=== PATIENT | male | born 1960 | race Caucasian/White ===

== ENCOUNTER 2021-12-08 14:52 | Inpatient (IN) | payer OTHER ==
[~2021-12-08] VITALS: Ht 177.8 cm; Wt 77.0 kg
[2021-12-08 15:39] LABS: BASO % 0.2 % (0.0-2.0); EOS # 0.2 K/mm3 (0.0-0.7); EOS % 0.8 % (0.0-4.0); GRAN # 16.3 K/mm3 (1.4-6.5); GRAN % 85.8 % (42.2-75.2); HEMATOCRIT 40.7 % (42.0-52.0); HEMOGLOBIN 13.8 g/dl (13.5-18.0); MEAN CELL VOLUME 86 fl (80.0-100.0); MEAN CORPUSCULAR HEMOGLOBIN 29 pg (27-31); MEAN CORPUSCULAR HGB CONC 34 g/dl (33.0-37.0); MONO # 1.5 K/mm3 (0.1-0.6); MONO % 7.8 % (1.7-9.3); PLATELET COUNT 233 K/mm3 (130-400); RED BLOOD COUNT 4.72 M/mm3 (4.20-5.60); REDCELL DISTRIBUTION WIDTH-CV 14.1 % (11.5-14.5)
[2021-12-08 16:00] LABS: ALBUMIN 3.2 gm/dL (3.4-4.8); BILIRUBIN,TOTAL 1.3 mg/dL (0.2-1.2); CREATININE, serum 0.85 mg/dL (0.72-1.25); POTASSIUM 3.8 mmol/L (3.5-4.5); TOTAL PROTEIN 7.8 gm/dL (6.2-8.1)
[2021-12-08] MEDS ORDERED: ZOCOR 80MG80 MG PO (17:00)
[2021-12-08] MEDS ORDERED: FOLIC ACID 11 MG/TA1 PO (17:11)
--- NOTE | 2021-12-08 18:30 | NUR ---
PT TO ROOM 347 FROM ED. PT IS A/O X3. WILL REPORT TO FAMILY PRACTITIONER.
[2021-12-08 20:17] VITALS: BP 129/67; PULSE 78; TEMP 97.7
[2021-12-08 23:50] VITALS: BP 145/83; PULSE 67; TEMP 97.5
--- NOTE | 2021-12-09 00:03 | NUR ---
PATIENT IN BED ON ROOM ENTRY. ALERT AND ORIENTED. MED RX AND ADMISSION ASSESSMENTS COMPLETED. PATIENT C/O MODERATE PAIN TO LOW ABD AROUND 0000 AND CALL PLACED TO FREDERICK MALDONADO FOR PAIN CONTROL MEDICATION. PRN STANLEY GIVEN. PATIENT DENIES ADDITIONAL NEEDS. CALL LIGHT IN REACH.
[2021-12-09] MEDS ORDERED: METHOTREXA2.5 MG/TAB PO (00:23)
[2021-12-09] MEDS ORDERED: HUMIRA(CF)40 MG/0.4 SQ (00:24)
[2021-12-09 04:27] VITALS: BP 139/85; PULSE 69; TEMP 97.3
[2021-12-09 06:46] LABS: MEAN CELL VOLUME 87 fl (80.0-100.0); MEAN CORPUSCULAR HEMOGLOBIN 30 pg (27-31); MEAN CORPUSCULAR HGB CONC 34 g/dl (33.0-37.0); MEAN PLATELET VOLUME 11.8 fl (7.4-10.4); PLATELET COUNT 257 K/mm3 (130-400); RED BLOOD COUNT 4.03 M/mm3 (4.20-5.60); REDCELL DISTRIBUTION WIDTH-CV 14.4 % (11.5-14.5)
[2021-12-09 07:02] LABS: ALBUMIN 2.7 gm/dL (3.4-4.8); C-REACTIVE PROTEIN 20.2 mg/dL (0.00-0.50); CALCIUM 9.1 mg/dL (8.4-10.2); CREATININE, serum 0.8 mg/dL (0.72-1.25); MAGNESIUM 1.8 mg/dL (1.6-2.6); PHOSPHOROUS 3.1 mg/dL (2.3-4.7); POTASSIUM 3.8 mmol/L (3.5-4.5)
[2021-12-09 07:11] VITALS: BP 140/81; PULSE 74; TEMP 99.1
[2021-12-09 07:39] LABS: HEMATOCRIT 35.1 % (42.0-52.0)
[2021-12-09 07:43] LABS: BAND 5 % (0-10); EOSINOPHIL 4 % (0-4); LYMPHOCYTE 9 % (20.0-51.0); NEUTROPHILS 74 % (42.0-75.2); PLATELET ESTIMATE NORMAL (NORMAL)
--- NOTE | 2021-12-09 08:19 | NUR ---
Patient prescribed hazardous medication: methotrexate. Last dose per med rec; 12/05. PPE required for 3 days after last administration so staff no longer need to follow precautions unless medication activated.
--- NOTE | 2021-12-09 09:03 | NUR ---
Initial visit; Patient appears to like company and is receptive to Construction Worker inquiring as to why he is hospitalized. Patient experiencing some pain and dependant on medication at this time. He says he appreciates being kept in Construction Worker's prayers. Oleg hopes that medication will help him heal aleviating the need for surgery. Construction Worker will follow up while patient is here.
--- NOTE | 2021-12-09 10:06 | NUR ---
PATIENT ALERT AND ORIENTED X4. VSS. PATIENT C/O PAIN 5/10, REQUESTS PAIN MEDICATION. ACTIVE BOWEL SOUNDS, NO GAS. PATIENT REPORTS NO INCREASE IN ABDOMINAL DISTENTION. SLOW ZOSYN AND NS RUNNING IN RIGHT AC. PATIENT TOLERATED BREAKFAST WITH NO N/V. PATIENT RESTING IN BED WITH CALL LIGHT NEAR.
[2021-12-09 11:32] VITALS: BP 141/72; PULSE 79; TEMP 99
--- NOTE | 2021-12-09 16:16 | NUR ---
cinder worker met with patient to complete intake and discuss discharge plan. Patient reports that he lives at home with his long time partner, Isabel ([phone]). Patient is independent with his ADL's and does not utilize any DME to assist with mobility. Patient has no home oxygen needs. [facility] and gets his medications mailed to this through the [facility]. Patient does not have a DPOA-HC established. Education provided. The patient is not legally and has no biological children. Informed him that if he would like to create a DPOA-HC listing Isabel or anyone else we can help him establish one before discharge. Patient is agreeable to this but would like to think about it. He is planning on returning home once medically ready. Discharge plan:Home
--- NOTE | 2021-12-09 19:49 | NUR ---
PT MEDICATED WITH OXYCODONE 5MG PO FOR ABD PAIN. ABD DISTENDED, HYPOACTIVE BS NOTED. HAS IVF TO RAC INFUSING WITHOUT REDNESS OR SWELLING. IS ALERT AND ORIENTED X4. INDEPENDENT IN ROOM.
[2021-12-09 20:07] VITALS: BP 149/82; PULSE 84; TEMP 99.6
[2021-12-10 00:57] VITALS: BP 144/66; BP 148/87; PULSE 56; PULSE 77; TEMP 98.2; TEMP 99.4
--- NOTE | 2021-12-10 02:51 | NUR ---
REPORTED NEW RHYTHM AFIB TO DR TINAJERO. ORDER FOR EKG.
--- NOTE | 2021-12-10 03:15 | NUR ---
PT ASKING FOR PAIN MEDS, OXYCODONE 5MG PO GIVEN.
--- NOTE | 2021-12-10 03:27 | NUR ---
REPORTED EKG RESULTS TO DR TINAJERO.
--- NOTE | 2021-12-10 04:04 | NUR ---
CARDIZEM GTT STARTED.
[2021-12-10 05:03] VITALS: BP 152/76; PULSE 63; TEMP 99.2
[2021-12-10 06:26] LABS: BASO # 0.1 K/mm3 (0.0-0.2); BASO % 0.4 % (0.0-2.0); EOS # 0.4 K/mm3 (0.0-0.7); EOS % 2.9 % (0.0-4.0); GRAN # 11.3 K/mm3 (1.4-6.5); GRAN % 76.7 % (42.2-75.2); HEMATOCRIT 39.6 % (42.0-52.0); HEMOGLOBIN 12.9 g/dl (13.5-18.0); LYMPH # 1.4 K/mm3 (1.2-3.4); LYMPH % 9.5 % (20.0-51.0); MEAN CELL VOLUME 90 fl (80.0-100.0); MEAN CORPUSCULAR HEMOGLOBIN 29 pg (27-31); MEAN CORPUSCULAR HGB CONC 33 g/dl (33.0-37.0); MEAN PLATELET VOLUME 12.1 fl (7.4-10.4); MONO # 1.5 K/mm3 (0.1-0.6); MONO % 10.2 % (1.7-9.3); PLATELET COUNT 167 K/mm3 (130-400); RED BLOOD COUNT 4.41 M/mm3 (4.20-5.60); REDCELL DISTRIBUTION WIDTH-CV 14.3 % (11.5-14.5)
[2021-12-10 06:49] LABS: ALBUMIN 2.6 gm/dL (3.4-4.8); C-REACTIVE PROTEIN 16.72 mg/dL (0.00-0.50); CALCIUM 9.1 mg/dL (8.4-10.2); CREATININE, serum 0.78 mg/dL (0.72-1.25); MAGNESIUM 1.9 mg/dL (1.6-2.6); PHOSPHOROUS 3.1 mg/dL (2.3-4.7); POTASSIUM 3.4 mmol/L (3.5-4.5)
--- NOTE | 2021-12-10 07:14 | NUR ---
PLACED PAGE TO DR GARCIA FOR NEW CONSULT.
[2021-12-10 08:00] VITALS: BP 151/87; PULSE 82; TEMP 98.2
--- NOTE | 2021-12-10 08:50 | NUR ---
PATIENT SLEEPING IN BED. ASSEMENTS COMPLETE. PRN PAIN MEDS GIVEN PER ORDERS. PT DENIES NEEDS AT THIS TIME.
--- NOTE | 2021-12-10 09:32 | NUR ---
pt resting in bed ate 100% of breakfast. pt rosales
--- NOTE | 2021-12-10 10:25 | NUR ---
Follow-up visit; Patient thanked Security Architect for looking in on him and states he is "still here," and says that is a good thing. Security Architect wished Oleg well and offered God's blessings.
[2021-12-10 11:39] VITALS: BP 143/87; PULSE 70; TEMP 97.9
[2021-12-10 16:00] VITALS: BP 151/85; PULSE 64; TEMP 98.2
[2021-12-10 19:49] VITALS: BP 174/84; PULSE 72; TEMP 98.1
--- NOTE | 2021-12-10 22:09 | NUR ---
PATIENT COMPLAINED OF ABDOMINAL PAIN, 9/10 PAIN SCORE, MORPHINE GIVEN AT THIS TIME, WILL CONTINUE TO MONITOR.
[2021-12-11] VITALS (8 sets, daily range): BP systolic 129–176; BP diastolic 70–97; PULSE 64–69; TEMP 97.6–98.4
--- NOTE | 2021-12-11 02:28 | NUR ---
ANTIBIOTICS GIVEN AT THIS TIME, PT REPORTED THAT HE PUKE A LITTLE AMOUNT OF CLEAR EMESIS AND HE'S DRY HEAVING, OFFERED ZOFRAN AND WAS GIVEN AT 0223.
[2021-12-11 07:05] LABS: ALBUMIN 2.7 gm/dL (3.4-4.8); CALCIUM 9.3 mg/dL (8.4-10.2); CREATININE, serum 0.75 mg/dL (0.72-1.25); MAGNESIUM 1.9 mg/dL (1.6-2.6); PHOSPHOROUS 3.3 mg/dL (2.3-4.7); POTASSIUM 3.7 mmol/L (3.5-4.5)
[2021-12-11 07:34] LABS: BASO # 0.1 K/mm3 (0.0-0.2); BASO % 0.4 % (0.0-2.0); EOS # 0.2 K/mm3 (0.0-0.7); EOS % 1.1 % (0.0-4.0); GRAN # 13.6 K/mm3 (1.4-6.5); GRAN % 80.9 % (42.2-75.2); HEMATOCRIT 37.4 % (42.0-52.0); HEMOGLOBIN 12.6 g/dl (13.5-18.0); LYMPH # 1.4 K/mm3 (1.2-3.4); LYMPH % 8.3 % (20.0-51.0); MEAN CELL VOLUME 88 fl (80.0-100.0); MEAN CORPUSCULAR HEMOGLOBIN 30 pg (27-31); MEAN CORPUSCULAR HGB CONC 34 g/dl (33.0-37.0); MEAN PLATELET VOLUME 11.9 fl (7.4-10.4); MONO # 1.5 K/mm3 (0.1-0.6); MONO % 8.8 % (1.7-9.3); RED BLOOD COUNT 4.26 M/mm3 (4.20-5.60); REDCELL DISTRIBUTION WIDTH-CV 14.3 % (11.5-14.5)
[2021-12-11 08:08] LABS: PLATELET COUNT 268 K/mm3 (130-400)
--- NOTE | 2021-12-11 11:36 | NUR ---
PATIENT ALERT AND ORIENTED X4. VSS. PATIENT C/O PAIN 09/03, REQUESTS PAIN MEDICATION. PATIENT ON POTASSIUM PROTOCOL. REPLACED X2. BOWEL SOUNDS ACTIVE, PATIENT REPORTS PASSING GAS. HYDRALAZINE ADMINISTERED FOR ELEVATED BLOOD PRESSURE. PATIENT COMPLAINS OF NAUSEA. ASSESSMENT PERFORMED. AM MEDS ADMINISTERED. PATIENT RESTING IN BED WITH CALL LIGHT NEAR.
--- NOTE | 2021-12-11 14:24 | NUR ---
Engineering Faculty rounds: Engineering Faculty visit attempted. Patient's guest told dormitory supervisor that Patient was in the shower.
--- NOTE | 2021-12-11 20:00 | NUR ---
Patient c/o abdominal pain, pain score of 7/10, IV morphine was given at 1954, no furhter needs for the patient at this time, call light and personal items within reach.
[2021-12-12] VITALS (7 sets, daily range): BP systolic 115–170; BP diastolic 64–89; PULSE 59–67; TEMP 97.7–98.8
--- NOTE | 2021-12-12 01:08 | NUR ---
Patient up to the bathroom by himself, oxycodone given at this time, will continue to monitor.
[2021-12-12 06:46] LABS: ALBUMIN 2.7 gm/dL (3.4-4.8); CALCIUM 9.3 mg/dL (8.4-10.2); CREATININE, serum 0.82 mg/dL (0.72-1.25); PHOSPHOROUS 3.2 mg/dL (2.3-4.7); POTASSIUM 3.8 mmol/L (3.5-4.5)
[2021-12-12 07:48] LABS: BASO # 0.1 K/mm3 (0.0-0.2); BASO % 0.4 % (0.0-2.0); EOS # 0.3 K/mm3 (0.0-0.7); EOS % 1.8 % (0.0-4.0); GRAN # 12.4 K/mm3 (1.4-6.5); GRAN % 79.1 % (42.2-75.2); HEMOGLOBIN 12.2 g/dl (13.5-18.0); LYMPH # 1.4 K/mm3 (1.2-3.4); LYMPH % 8.9 % (20.0-51.0); MEAN CELL VOLUME 88 fl (80.0-100.0); MEAN CORPUSCULAR HEMOGLOBIN 29 pg (27-31); MEAN CORPUSCULAR HGB CONC 33 g/dl (33.0-37.0); MONO # 1.4 K/mm3 (0.1-0.6); MONO % 9.2 % (1.7-9.3); RED BLOOD COUNT 4.16 M/mm3 (4.20-5.60); REDCELL DISTRIBUTION WIDTH-CV 14.4 % (11.5-14.5)
--- NOTE | 2021-12-12 08:00 | NUR ---
PATIENT IS A&O. VSS ON TELE. NOTED REGULAR RATE BUT EXTRA HEART SOUND. PATIENT IS DAY 3 OF SOTOLOL FOR A-FIB. NOTED ELEVATED WBC OF 15.7, GETTING IV ABX OF FLAGYL & ZOSYN. ABD IS ROUND, SOFT AND WITH POSITIVE BOWL SOUNDS. PATIENT IS PASSING GAS AND MICROELECTRONICS ENGINEER REPORTS LIQUID BM IN THE EARLY HOURS OF THE MORNING. NO C/O N/V AT THIS TIME. BREAKFAST TRAY AT BEDSIDE. IV FLUIDS INFUSING INTO RIGHT AC IV. HEAD TO TOE ASSESSMENT COMPLETE. AM MEDS GIVEN. PATIENT C/O PAIN RATED AT 8/10, GAVE PRN ROXICODONE, ONE TAB. PT/OT CONSULTED. SCD'S CURRENTLY OFF. NO OTHER NEEDS AT THIS TIME. CALL LIGHT IN REACH.
[2021-12-12 08:01] LABS: HEMATOCRIT 36.6 % (42.0-52.0); PLATELET COUNT 294 K/mm3 (130-400)
--- NOTE | 2021-12-12 09:45 | NUR ---
PATIENT REPORTS HE IS FEELING GOOD AND WANTS TO GO FOR A WALK IN THE HALLS WITH HIS .
--- NOTE | 2021-12-12 10:45 | NUR ---
AT BEDSIDE MAKING ROUNDS, SEE NOTES.
--- NOTE | 2021-12-13 01:27 | NUR ---
Patient alert and oriented x 4, c/o of intermittent abdominal pain, at 2131 oxycodone was given with a pain score of 8/10, offered warm blanket but refused. At 2338, he rated his pain at 10/10 and another 5mg of oxycodone was given. Hydralazine IV was given as well at this time due to elevated BP, will continue to monitor, call light and personal items within reach.
[2021-12-13 04:07] VITALS: BP 140/69; PULSE 64; TEMP 98.2
[2021-12-13 06:56] LABS: ALBUMIN 2.5 gm/dL (3.4-4.8); CALCIUM 8.8 mg/dL (8.4-10.2); CREATININE, serum 0.78 mg/dL (0.72-1.25); MAGNESIUM 1.8 mg/dL (1.6-2.6); PHOSPHOROUS 2.7 mg/dL (2.3-4.7); POTASSIUM 3.7 mmol/L (3.5-4.5)
[2021-12-13 07:55] VITALS: BP 128/68; BP 159/98; PULSE 68; PULSE 77; TEMP 98.3; TEMP 99.4
[2021-12-13 08:43] LABS: BASO # 0.1 K/mm3 (0.0-0.2); BASO % 0.4 % (0.0-2.0); EOS # 0.2 K/mm3 (0.0-0.7); GRAN # 13.4 K/mm3 (1.4-6.5); GRAN % 81.1 % (42.2-75.2); HEMATOCRIT 37.7 % (42.0-52.0); HEMOGLOBIN 12.8 g/dl (13.5-18.0); LYMPH # 1.4 K/mm3 (1.2-3.4); LYMPH % 8.2 % (20.0-51.0); MEAN CELL VOLUME 88 fl (80.0-100.0); MEAN CORPUSCULAR HEMOGLOBIN 30 pg (27-31); MEAN CORPUSCULAR HGB CONC 34 g/dl (33.0-37.0); MONO # 1.4 K/mm3 (0.1-0.6); MONO % 8.3 % (1.7-9.3); RED BLOOD COUNT 4.31 M/mm3 (4.20-5.60); REDCELL DISTRIBUTION WIDTH-CV 14.2 % (11.5-14.5)
[2021-12-13 10:41] LABS: MEAN PLATELET VOLUME 10.2 fl (7.4-10.4); PLATELET COUNT 318 K/mm3 (130-400)
[2021-12-13 12:37] VITALS: BP 166/78; PULSE 67; TEMP 98.7
[2021-12-13 16:45] VITALS: BP 160/76; PULSE 63; TEMP 98.9
[2021-12-13 19:38] VITALS: BP 140/70; PULSE 63; TEMP 98.2
[2021-12-14] VITALS (16 sets, daily range): BP systolic 104–196; BP diastolic 60–110; PULSE 59–68; TEMP 98.1–98.7
--- NOTE | 2021-12-14 09:41 | NUR ---
PATIENT OFF OF FLOOR FOR PROCEDURE
[2021-12-14 15:23] LABS: ALBUMIN 2.5 gm/dL (3.4-4.8); BILIRUBIN,TOTAL 0.4 mg/dL (0.2-1.2); CALCIUM 8.5 mg/dL (8.4-10.2); CREATININE, serum 0.72 mg/dL (0.72-1.25); MAGNESIUM 1.9 mg/dL (1.6-2.6); PHOSPHOROUS 3.1 mg/dL (2.3-4.7); POTASSIUM 3.8 mmol/L (3.5-4.5); TOTAL PROTEIN 5.9 gm/dL (6.2-8.1)
--- NOTE | 2021-12-14 21:30 | NUR ---
PATIENT IS RESTING IN BED.PATIENT IS ON IVF AND TPN DRIPPING WELL.PATIENT IS TOLERATING ORAL FLUIDS WELL.PATIENT REPORTS PAIN.MEDICATION GIVEN PER MAR.PATIENT IS INDEPENDENT IN THE ROOM.PATIENT HAS A DRIN ON THE RT SIDE OF THE ABDOMEN ITS DRAINING MIMIMAL PURULENT DRAINAGE.NO OTHER NEEDS AT THIS TIME.
[2021-12-15 04:18] VITALS: BP 131/74; PULSE 67; TEMP 97.5
--- NOTE | 2021-12-15 06:07 | NUR ---
PATIENT REPORTS MILD PAIN.MEDICATIONS ADMINISTERED PER MAR.THE DRAIN ON THE LT ABD HAS MINIMAL DRAINAGE.PATIIENT IS ON TPN AND IVF.PATIENT IS INDEPENDENT INTHE ROOM.NO OTHER NEEDS AT THIS TIME.
[2021-12-15 06:48] LABS: C-REACTIVE PROTEIN 6.86 mg/dL (0.00-0.50); CALCIUM 8.3 mg/dL (8.4-10.2); CREATININE, serum 0.79 mg/dL (0.72-1.25); MAGNESIUM 1.9 mg/dL (1.6-2.6); PHOSPHOROUS 3.2 mg/dL (2.3-4.7); POTASSIUM 4.1 mmol/L (3.5-4.5)
[2021-12-15 06:51] LABS: BASO # 0.1 K/mm3 (0.0-0.2); BASO % 0.5 % (0.0-2.0); EOS # 0.2 K/mm3 (0.0-0.7); EOS % 1.4 % (0.0-4.0); GRAN # 10.4 K/mm3 (1.4-6.5); GRAN % 72.9 % (42.2-75.2); HEMOGLOBIN 12.1 g/dl (13.5-18.0); LYMPH % 13.7 % (20.0-51.0); MEAN CELL VOLUME 90 fl (80.0-100.0); MEAN CORPUSCULAR HEMOGLOBIN 29 pg (27-31); MEAN CORPUSCULAR HGB CONC 33 g/dl (33.0-37.0); MONO # 1.5 K/mm3 (0.1-0.6); MONO % 10.2 % (1.7-9.3); RED BLOOD COUNT 4.11 M/mm3 (4.20-5.60); REDCELL DISTRIBUTION WIDTH-CV 14.6 % (11.5-14.5)
[2021-12-15 06:56] LABS: PLATELET COUNT 332 K/mm3 (130-400)
[2021-12-15 07:55] VITALS: BP 128/83; PULSE 71; TEMP 98.6
--- NOTE | 2021-12-15 11:43 | NUR ---
PATIENT ALERT AND ORIENTED X4. VSS. DRAIN WITH MINIMAL OUTPUT. DRESSING, CDI. TPN RUNNING AT 42ML/HOUR, NS RUNNING AT 50ML/HOUR. PICC TO RIGHT UPPER ARM, FLUSHES WELL AND GOOD BLOOD RETURN. ASSESSMENT PERFORMED. AM MEDS ADMINISTERED. PATIENT RESTING IN BED WITH CALL LIGHT NEAR.
[2021-12-15 12:07] VITALS: BP 1136/77; PULSE 69; TEMP 96.7
[2021-12-15 16:10] VITALS: BP 142/90; PULSE 73; TEMP 96.8
[2021-12-15 20:44] VITALS: BP 157/82; PULSE 73; TEMP 99.4
--- NOTE | 2021-12-15 22:00 | NUR ---
Patient alert and oriented x4, with PICC at right upper arm with 2 ports red and purple, with TPN on the purple port infusing well and with NS on the red port, with accordion drain draining scanty amount of light brown fluid, has been passing gas and had a bm today, strict and I&O maintained will continue to monitor.
[2021-12-16] VITALS (7 sets, daily range): BP systolic 131–159; BP diastolic 77–94; PULSE 73–87; TEMP 97.7–98.9
--- NOTE | 2021-12-16 04:34 | NUR ---
Patient been sleeping on and off, TPN still running at 42cc/hr and NS running at 50cc/hr, strict I and O maintained, he reported that something squirted out to the floor from the accordion drain probably 12 drops, this nurse checked the device and noted there's no open hole in it, will closely monitor, kept the drain at negative pressure.
--- NOTE | 2021-12-16 05:30 | NUR ---
Patient's accordion drain dressing is slightly soaked with blood;removed and applied a drain sponge and gauze, will continue to monitor, denies any nausea or abdominal discomfort at this time.
--- NOTE | 2021-12-16 07:05 | NUR ---
awake resting in bed, bedside shift report received from LEDA Carroll
[2021-12-16 07:22] LABS: CALCIUM 8.5 mg/dL (8.4-10.2); CREATININE, serum 0.75 mg/dL (0.72-1.25); PHOSPHOROUS 3.1 mg/dL (2.3-4.7); POTASSIUM 4.2 mmol/L (3.5-4.5)
[2021-12-16 07:39] LABS: HEMATOCRIT 38.4 % (42.0-52.0); HEMOGLOBIN 12.6 g/dl (13.5-18.0); MEAN CELL VOLUME 89 fl (80.0-100.0); MEAN CORPUSCULAR HEMOGLOBIN 29 pg (27-31); MEAN CORPUSCULAR HGB CONC 33 g/dl (33.0-37.0); REDCELL DISTRIBUTION WIDTH-CV 14.6 % (11.5-14.5)
[2021-12-16 07:55] LABS: PLATELET COUNT 370 K/mm3 (130-400)
[2021-12-16 08:39] LABS: BAND 6 % (0-10); EOSINOPHIL 4 % (0-4); LYMPHOCYTE 23 % (20.0-51.0); NEUTROPHILS 62 % (42.0-75.2); PLATELET ESTIMATE NORMAL (NORMAL)
--- NOTE | 2021-12-16 08:40 | NUR ---
sitting up in bed eating breakfast, denies pain or needs at this time
[2021-12-16 08:41] LABS: OVALOCYTES 1+
--- NOTE | 2021-12-16 09:45 | NUR ---
had breakfast and tolerated well, full assessment completed, see interventions for further info, denies needs
--- NOTE | 2021-12-16 10:39 | NUR ---
Follow-up visit; Patient thanked Personal Vehicle Advisor for looking in on him again and offering God's blessings. Patient always appears to be in good spirits and answers Personal Vehicle Advisor optimistically. wished Oleg well.
--- NOTE | 2021-12-16 13:17 | NUR ---
eating lunch, bedside shift report given to LEDA Britton
--- NOTE | 2021-12-16 14:15 | NUR ---
Report received from LEDA Linton. Pt. sitting up in bed eating lunch. Accordion drain noted to LLQ (for abscess). Drain dressing is CDI. Pt. continues on TPN and IVF infusing to RUE PICC. Pt. denies pain/discomfort. Denies nausea. Denies additional needs. Call light is in his reach.
--- NOTE | 2021-12-16 17:33 | NUR ---
Pt. sitting up in bed. He reports slight nausea. Zofran offered and declined by the pt. He will "call for the nurse" if the nausea worsens. No pain reported by the pt. TPN infusion completed approx 1 hr ago. IV antifungal infusing to PICC RUE. Pt. denies additional needs. Call light is in his reach.
--- NOTE | 2021-12-16 18:43 | NUR ---
Pt reports that nausea has resolved. He denies additional needs. Call light is in his reach
--- NOTE | 2021-12-16 21:30 | NUR ---
Patient alert and oriented, PICC line on right upper arm with ongoing NS 50cc/hr, with accordion drain and noted slightly soaked with blood on the dressing, removed and applied new dressing, informed charge nurse regarding this, will closely monitor.
[2021-12-17 04:01] VITALS: BP 143/87; PULSE 83; TEMP 98.9
[2021-12-17 07:28] LABS: CALCIUM 8.5 mg/dL (8.4-10.2); CREATININE, serum 0.72 mg/dL (0.72-1.25); MAGNESIUM 1.9 mg/dL (1.6-2.6); PHOSPHOROUS 3.1 mg/dL (2.3-4.7); POTASSIUM 3.9 mmol/L (3.5-4.5)
[2021-12-17 07:49] LABS: HEMATOCRIT 38.3 % (42.0-52.0); HEMOGLOBIN 12.5 g/dl (13.5-18.0); MEAN CELL VOLUME 89 fl (80.0-100.0); MEAN CORPUSCULAR HEMOGLOBIN 29 pg (27-31); MEAN CORPUSCULAR HGB CONC 33 g/dl (33.0-37.0); REDCELL DISTRIBUTION WIDTH-CV 14.6 % (11.5-14.5)
[2021-12-17 07:54] LABS: PLATELET COUNT 371 K/mm3 (130-400)
--- NOTE | 2021-12-17 08:00 | NUR ---
PATIENT ACCORDIAN DRAIN SITE OOZING THROUGH DRESSING, THROUGH GOWN AND ONTO BED. NOTIFIED . FLUSHED DRAIN WITH 10-20CC OF SALINE PER PROVIDER, FLUSHED WELL. NOTED CLOTS WHEN REMOVING SATURATED DRESSING. APPLIED GAUZE, ABD & SOFT ACEWRAP AROUND ABD TO GENTLE COMPRESSION THAT DOESN'T INTERFERE WITH WITH DRAIN/COMPRESSION. NOTED SMALL AMOUNTS OF MORE DRAINAGE IN ACCORDIAN DRAIN. PATIENT REPORTS MILD DISCOMFORT AND DENIES NEED FOR PAIN MEDS. ONLY TAKING SCHEDULED TYLENOL. ABD IS ROUND WITH HYPOBOWL SOUNDS. NO C/O N/V. IV ABX INFUSING VIA PUMP INTO RIGHT UPPER ARM PICC. VOIDING SUFFICIENT AMOUNTS. INDEPENDENT IN ROOM. HEAD TO TOE ASSESSMENT COMPLETE. VSS ON TELE. AM MEDS GIVEN. NO OTHER NEEDS AT THIS TIME. CALL LIGHT IN REACH.
[2021-12-17 08:19] LABS: BAND 7 % (0-10); EOSINOPHIL 6 % (0-4); LYMPHOCYTE 17 % (20.0-51.0); METAMYELOCYTE 1 % (0-0); NEUTROPHILS 59 % (42.0-75.2); PLATELET ESTIMATE NORMAL (NORMAL)
[2021-12-17 08:33] VITALS: BP 146/78; PULSE 87; TEMP 97.9
[2021-12-17 12:16] VITALS: BP 128/82; PULSE 82; TEMP 98.5
--- NOTE | 2021-12-17 13:20 | NUR ---
REPORTED OFF TO LEDA SINGH.
--- NOTE | 2021-12-17 13:20 | NUR ---
Report recieved, assumed care for day shift.
[2021-12-17 16:32] VITALS: BP 153/92; PULSE 80; TEMP 98.2
--- NOTE | 2021-12-17 18:00 | NUR ---
Patient had an uneventful day. Dressing continued to have bright red drainage on it. Accordian drain with scant amount of brown/rojas drainage. Denies pain, nausea or shortness of breath. VS remained stable. Family at bedside. Will continue to monitor.
[2021-12-17 20:05] VITALS: BP 150/87; PULSE 82; TEMP 98.6
--- NOTE | 2021-12-17 22:45 | NUR ---
Patient's accordion drain had leak and soaked with blood, this nurse changed the dressing with gauze and denise wrap, still with PICC line to CADEN, denies nausea or abdominal pain, will continue to monitor.
[2021-12-17 23:53] VITALS: BP 113/75; PULSE 75; TEMP 98.6
[2021-12-18 03:31] VITALS: BP 127/80; PULSE 78; TEMP 98.4
[2021-12-18 06:20] LABS: HEMATOCRIT 38.7 % (42.0-52.0); HEMOGLOBIN 12.6 g/dl (13.5-18.0); MEAN CELL VOLUME 89 fl (80.0-100.0); MEAN CORPUSCULAR HEMOGLOBIN 29 pg (27-31); MEAN CORPUSCULAR HGB CONC 33 g/dl (33.0-37.0); RED BLOOD COUNT 4.34 M/mm3 (4.20-5.60); REDCELL DISTRIBUTION WIDTH-CV 14.6 % (11.5-14.5)
[2021-12-18 06:39] LABS: PLATELET COUNT 196 K/mm3 (130-400)
[2021-12-18 06:40] LABS: CALCIUM 9.1 mg/dL (8.4-10.2); CREATININE, serum 0.77 mg/dL (0.72-1.25); MAGNESIUM 1.9 mg/dL (1.6-2.6); PHOSPHOROUS 3.8 mg/dL (2.3-4.7); POTASSIUM 4.1 mmol/L (3.5-4.5)
[2021-12-18 07:27] VITALS: BP 125/88; PULSE 90; TEMP 98.4
[2021-12-18 08:23] LABS: BAND 2 % (0-10); BASOPHIL 1 % (0-2); EOSINOPHIL 1 % (0-4); HYPOCHROMIA 1+; LYMPHOCYTE 22 % (20.0-51.0); NEUTROPHILS 65 % (42.0-75.2); PLATELET ESTIMATE NORMAL (NORMAL)
[2021-12-18 08:24] LABS: OVALOCYTES 1+
--- NOTE | 2021-12-18 08:44 | NUR ---
PT SITTING UP IN BED VISITING WITH VISITOR. SHIFT ASESSMENT PERFORMED, VSS. BANDAGE AROUND ABD CDI. CALL LIGHT WITHIN REACH.
--- NOTE | 2021-12-18 10:16 | NUR ---
AGREE WITH SILVERIO'S LIVESTOCK FEEDER ASSESSMENTS.
[2021-12-18] MEDS ORDERED: FLAGYL500 MG PO (10:45)
[2021-12-18] MEDS ORDERED: DIFLUCAN200 MG PO (10:45)
[2021-12-18] MEDS ORDERED: CIPRO 500MG TA500 MG PO (10:46)
[2021-12-18] MEDS ORDERED: BETAPACE 80MG80 MG PO (10:47)
[2021-12-18] MEDS ORDERED: NORVASC 5MG5 MG/TAB PO (10:48)
[2021-12-18] MEDS ORDERED: ASPIRIN 81M81 MG/TA2 PO (10:48)
[2021-12-18] MEDS ORDERED: HUMIRA(CF)40 MG/0.4 SQ (10:50)
[2021-12-18] MEDS ORDERED: ROXICODONE 55 MG/TAB PO (10:58)
[2021-12-18 12:05] VITALS: BP 133/85; PULSE 65; TEMP 98.1
== END 2021-12-18 13:00 | disposition home or self-care (01) | DRG 391 ==
LOC: COL.ER 14:52 → SURG 17:02
PROVIDERS: Emergency Medicine; Hospitalist; Surgery; ADMIT Internal Medicine
PROC: 0W9G3ZZ Drainage of Peritoneal Cavity, Percutaneous Approach (ICD-10-PCS; principal; 2021-12-14)
DX: K57.20 Diverticulitis of large intestine with perforation and abscess without bleeding (principal); K65.1 Peritoneal abscess; I71.02 Dissection of abdominal aorta; B96.20 Unspecified Escherichia coli [E. coli] as the cause of diseases classified elsewhere; M06.9 Rheumatoid arthritis, unspecified; Z79.899 Other long term (current) drug therapy; I48.0 Paroxysmal atrial fibrillation; Z79.01 Long term (current) use of anticoagulants; E87.6 Hypokalemia; E78.5 Hyperlipidemia, unspecified; Z87.891 Personal history of nicotine dependence
CPT/HCPCS: OP; C1729; C1751; C1887; G0378; J0348; J0360; J0692; J0696; J1650; J2250; J2270; J2405; J2543; J2765; J3010; J3475; J7030; Q9967